=== PATIENT | female | born 1970 | race Caucasian/White ===

== ENCOUNTER 2025-02-20 03:21 | Emergency (ER) | payer SELFPAY ==
[2025-02-20 03:27] VITALS: BP 177/100
[2025-02-20 04:58] VITALS: BP 157/87
--- NOTE | 2025-02-20 06:12 | ED.GENMED ---
History of Present Illness
General
Chief Complaint: Crisis Evaluation
Source: patient
Exam Limitations: none
Time Seen by Provider: 02/20/25 03:35
Nursing documentation reviewed up to this point in time: agreed with
History of Present Illness
History of Present Illness:
Patient who is currently homeless, presents to the emergency department requesting to speak with [facility]. Patient states that for the past 2-1/2 years, she has been hearing voices of her previous partner and female frame hand. Patient
would like to have the voices stopped. Patient has requested assistance from the police department as well. Patient otherwise has no additional complaints. Denies suicidal or homicidal ideation. Patient does admit that she is homeless. Denies
recent illness.
Past History
Past History
ED Past Medical History: None
ED Past Surgical History: None
Social History
Tobacco: Non-smoker
Alcohol: None
Drug: None
Review of Systems
Review of Systems
Allergies reviewed?: Yes
Constitutional: Reports no symptoms
Respiratory: Reports no symptoms
Cardiac: Reports no symptoms
ABD/GI: Reports no symptoms
Musculoskeletal: Reports no symptoms
Skin: Reports no symptoms
Neurological: Reports no symptoms
Psychiatric: Reports hallucinations
Phy Exam
Physical Exam
Physical Exam:
Physical Exam
General: no apparent distress, not acutely ill. afebrile
Head: nc/at. eomi
Neck: supple. no meningeal signs.
Neuro: alert and oriented x 3. no focal neurological deficits
Skin: no rash
Psychiatric: well kept. interactive and cooperative. tearful
Extremities: no edema. no calf tenderness.
Course
Orders/Labs/Results
Orders:
Orders
02/20/25 03:56
Crisis Consult Urgent
Reason for Consult: auditory hallucination
02/20/25 06:07
PSYCHIATRY CONSULT Urgent
Consulting Provider: Dalton Wilhelm
Was physician already notified: Yes
Reason for consult: auditory hallucination
02/20/25 09:32
Ibuprofen [Motrin] 600 mg PO NOW STA
02/20/25 10:21
CT Head W/o Iv Contrast Urgent
Comment:
Reason For Exam: new onset hallucinations
02/20/25 10:35
Complete Blood Count/With Diff Urgent
Comprehensive Metabolic Panel Urgent
Abnormal Lab Results
02/20/25
10:35
RBC 4.14 L 10^6/uL
(4.20-5.40)
Hgb 11.9 L g/dL
(12.0-16.0)
Hct 36.0 L %
(37.0-47.0)
Chloride 108 H mmol/L
(98-107)
02/20/25 10:35
02/20/25 10:35
Vital Signs
Initial and Last Documented VS:
Initial Vital Signs
Temp Pulse Resp BP Pulse Ox
98.2 F 121 20 177/100 98
02/20/25 03:27 02/20/25 03:27 02/20/25 03:27 02/20/25 03:27 02/20/25 03:27
Last Documented Vital Signs
Temp Pulse Resp BP Pulse Ox
98.2 F 95 18 148/82 98
02/20/25 09:31 02/20/25 09:31 02/20/25 09:31 02/20/25 09:31 02/20/25 09:31
MDM/Problems Addressed
MDM/Problems Addressed:
Patient evaluated by [facility] circulation worker. Patient does not wish to pursue inpatient psychiatric evaluation/treatment. As such, we will place consult to psychiatry for further evaluation and treatment.
*Pulse Oximetry
SaO2: 98
Oxygen Mode of Delivery: Room air
Patient hypoxic: no
*Critical Care Note
Total Time (30-74mins, 75-104mins- exclusive of procedures): Not Applicable
ED Attending Note
-
Portions of this chart may have been created with voice recognition software.� Occasional wrong word or��sound alike� substitutions may have occurred due to the inherent limitations of voice recognition software.
Discharge Plan
Departure
Patient Disposition: Psych Facility
Date of Disposition: 02/20/25
Time of Disposition: 10:00
Discharge Problem:
Auditory hallucinations
Referrals:
UNKNOWN - PT NOT,INTERVIEWE [Family Provider]
Interventions
Interventions:
*Risk Screen - Suicide Last Done: 02/20/25 03:27
*General Assessment Last Done: 02/20/25 03:27
*Neglect/Abuse Screening Last Done: 02/20/25 03:27
*ED- Fall Risk Assessment Last Done: 02/20/25 04:02
*ED COVID-19 Vaccine History Last Done: 02/20/25 04:02
*ED Influenza Vaccine History Last Done: 02/20/25 04:02
*Nursing Disposition Last Done: 02/20/25 09:19
ED-Psychological Assessment Last Done: 02/20/25 04:02
Discharge Date and Time
Print Language: [place] CITIZ[place]
[2025-02-20 09:31] VITALS: BP 148/82
--- NOTE | 2025-02-20 09:34 | EDRN ---
Pt has her breakfast and when this RN went in to check on pt, she told me her L arm is in pain 10/01 upon lifting it. She said it must have been how she slept on it. She also requested some motrin. This RN TT'd Dr. Cary w/ pt's arm pain and request.
[2025-02-20] MEDS: MOTRIN 600 MG PO (09:54)
--- NOTE | 2025-02-20 10:24 | EDRN ---
Dr. Wilhelm was in to see pt and is requesting blood work, was just speaking w/ Dr. Cary.
--- NOTE | 2025-02-20 10:40 | EDRN ---
Blood drawn and sent to lab. Pt is now awaiting to go for a CT scan. Pt was asked about her breakfast consumption and said her bowels move after every meal and her abdomen gets uncomfortable after eating. Pt states she has had this for awhile.
[2025-02-20 10:41] LABS: Hematocrit 36.0 % (37.0-47.0); Hemoglobin 11.9 g/dL (12.0-16.0); Mean Corp Hgb Conc. 33.1 g/dL (33.0-37.0); Mean Corpuscular Volume 87.0 fL (81.0-99.0); Nucleated Red Blood Cells % 0 %; Platelet Count 241 10^3/uL (130-400); Red Cell Dist. Width 13.5 % (11.5-14.5)
--- NOTE | 2025-02-20 11:07 | CS.PSYCHR ---
Consult Summary - Psychiatry
-
Pt is a 54 yo female who was brought in to ED by police overnight, reportedly found sleeping on the ground. Psychiatry asked to evaluate due to pt complaining of auditory hallucinations. Pt was assessed by Crisis staff. On interview, pt is
resting in bed dressed appropriately in street clothes. She makes good eye contact and answers questions. Pt c/o onset of hearing 2 voices when she left her ex-boyfriend with whom she was living 2 1/2 years ago. Pt states she began hearing 'M[place]
and [place]otta' when she reached a motel, staying there due to being homeless. Pt states she hears the voices as if someone is present in the room, feels it may some type of telepathy, does not appear to be able to question the reality of this. She
complains they are 'harassing me', states they took a video of her. Pt accepted support, agreed to have some medical testing. She reports hx of thyroid problem, was on Synthroid in the past. Pt denies physical symptoms, except for occasionally
feeling off-balance. She does not offer any other delusional ideas/statements. Pt briefly tearful expressing wish to get rid of her symptoms, but denies feeling depressed. 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 After discussion, pt stated she would consider going to a psychiatric facility 'if that's what it takes' to
address her hallucinations.
Psych Hx: denies any pervious eval or treatment; denies any hx of psychotic symptoms prior to 2 1/2 years ago
FHx: mother at age 47 of melanoma per pt. Father is
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 Has not worked for a while, took time off, was living on money inherited from her father when he . Pt states she left her boyfriend when
he was cheating, became homeless. Homeless for over 2 years, is familiar with [facility].
Substance use: past social alcohol, had one DUI, denies hx of heavy alcohol use, denies recent use. Occasional MJ use, was given some medical MJ gummies, states they help her sleep
MSE: alert, oriented, sensorium intact. Speech coherent, thought goal-directed, with delusional content around auditory hallucinations. Pt c/o AH of ex-boyfriend and another woman, has delusional explanation involving telepathy and being
harassed. No overt RIS. Affect appropriate, mood dysphoric. Denies Suicidal/homicidal. Insight limited
Imp: Unspecified Psychotic d/o, with hallucinations and impaired reality testing/delusions. Pt does not present as typical case of Schizophrenia or Depression with psychotic features. Pt does not report significant substance that would explain
her symptoms. Pt does not present grounds for a 302/involuntary commitment
Rec: Medical clearance/testing to rule out potential medical causes for hallucinations, although this is a rare possibility- including blood work and CT Head (reviewed with ER physician)
Consider referral to inpatient psychiatric eval/treatment, if pt agrees to voluntary admission, to address c/o AH and associated delusions
Will follow
[2025-02-20 11:09] LABS: ALT (SGPT) 20 U/L (0-35); AST (SGOT) 24 U/L (14-36); Albumin 3.7 g/dl (3.5-5.0); Alkaline Phosphatase 77 U/L (38-126); Blood Urea Nitrogen 11 mg/dl (7-17); Calcium 9.1 mg/dl (8.4-10.2); Carbon Dioxide 27 mmol/L (22-30); Chloride 108 mmol/L (98-107); Glucose 90 mg/dl (70-99); Potassium 4.9 mmol/L (3.5-5.1); Sodium 137 mmol/L (135-145); Total Protein 6.6 g/dl (6.3-8.2); eGFR > 60.00
--- NOTE | 2025-02-20 13:24 | EDRN ---
Pt is medically cleared but has decided she would like inpt phychiatric care w/ Dr. Wilhelm. Crisis is working on this prospect for pt at this time and difficulty is insurance as pt does not have medical insurance.
--- NOTE | 2025-02-20 15:00 | ED.GENMED ---
History of Present Illness
General
Chief Complaint: Crisis Evaluation
Time Seen by Provider: 02/20/25 03:35
Past History
Past History
ED Past Medical History: None
ED Past Surgical History: None
Social History
Tobacco: Non-smoker
Alcohol: None
Drug: None
Course
Orders/Labs/Results
Orders:
Orders
02/20/25 03:56
Crisis Consult Urgent
Reason for Consult: auditory hallucination
02/20/25 06:07
PSYCHIATRY CONSULT Urgent
Consulting Provider: Dalton Wilhelm
Was physician already notified: Yes
Reason for consult: auditory hallucination
02/20/25 09:32
Ibuprofen [Motrin] 600 mg PO NOW STA
02/20/25 10:21
CT Head W/o Iv Contrast Urgent
Comment:
Reason For Exam: new onset hallucinations
02/20/25 10:35
Complete Blood Count/With Diff Urgent
Comprehensive Metabolic Panel Urgent
02/20/25 14:59
Drug Screen, Urine [Urine Drug Abuse Screen] Urgent
HCG, Urine Qualitative Screen Urgent
02/20/25 15:00
Test Result ONCE
Abnormal Lab Results
02/20/25
10:35
RBC 4.14 L 10^6/uL
(4.20-5.40)
Hgb 11.9 L g/dL
(12.0-16.0)
Hct 36.0 L %
(37.0-47.0)
Chloride 108 H mmol/L
(98-107)
02/20/25 10:35
02/20/25 10:35
Vital Signs
Initial and Last Documented VS:
Initial Vital Signs
Temp Pulse Resp BP Pulse Ox
98.2 F 121 20 177/100 98
02/20/25 03:27 02/20/25 03:27 02/20/25 03:27 02/20/25 03:27 02/20/25 03:27
Last Documented Vital Signs
Temp Pulse Resp BP Pulse Ox
98.2 F 95 18 148/82 98
02/20/25 09:31 02/20/25 09:31 02/20/25 09:31 02/20/25 09:31 02/20/25 09:31
*Pulse Oximetry
SaO2: 98
Oxygen Mode of Delivery: Room air
Update Note
Update Note:
Patient resting comfortably. Seen by crisis. Psychiatry recommended inpatient care which crisis workers are seeking. Labs grossly unremarkable. CT shows mild bilateral frontal and parietal volume loss but otherwise unremarkable. Await placement
ED Attending Note
-
Portions of this chart may have been created with voice recognition software.� Occasional wrong word or��sound alike� substitutions may have occurred due to the inherent limitations of voice recognition software.
Discharge Plan
Departure
Patient Disposition: Psych Facility
Date of Disposition: 02/20/25
Time of Disposition: 10:00
Discharge Problem:
Auditory hallucinations
Referrals:
UNKNOWN - PT NOT,INTERVIEWE [Family Provider]
Interventions
Interventions:
*Risk Screen - Suicide Last Done: 02/20/25 03:27
*General Assessment Last Done: 02/20/25 03:27
*Neglect/Abuse Screening Last Done: 02/20/25 03:27
*ED- Fall Risk Assessment Last Done: 02/20/25 04:02
*ED COVID-19 Vaccine History Last Done: 02/20/25 04:02
*ED Influenza Vaccine History Last Done: 02/20/25 04:02
*Nursing Disposition Last Done: 02/20/25 09:19
ED-Psychological Assessment Last Done: 02/20/25 04:02
Discharge Date and Time
Print Language: CYMRO
[2025-02-20 15:17] LABS: HCG, Urine Qualitative Screen Negative
--- NOTE | 2025-02-20 15:59 | ED.CRISIS ---
ED Crisis Note
ED Crisis Note
Assessment/Plan:
Patient resting comfortably. Received in signout. Seen by psychiatry. Labs and CT ordered. Labs grossly unremarkable CBC normal. CMP normal. CT does show some frontal and parietal volume loss but otherwise unremarkable. Awaits placement
[2025-02-20 16:39] VITALS: BP 141/70
== END 2025-02-20 16:50 ==
LOC: EMR 03:21
PROVIDERS: CONSULT PHYSICIAN Psychiatry & Neurology Psychiatry; EMERGENCY PHYSICIAN Emergency Medicine
DX: R44.0 Auditory hallucinations (principal); F22 Delusional disorders; Z59.00 Homelessness unspecified; F39 Unspecified mood [affective] disorder
CPT/HCPCS: 99285; 70450; 80053; 80306; 81025; 85025